=== PATIENT | male | born 1980 | race Caucasian/White ===

== ENCOUNTER → 2019-06-06 | Outpatient (CLI) | payer OTHER ==
--- NOTE | 2019-06-06 15:30 | RADIOLOGY REPORT (SQ) ---
EXAM DESCRIPTION: MRI LUMBAR SPINE WITHOUT COMPLETED DATE/TIME: 06/06/2019 2:46 pm REASON FOR STUDY: LOW BACK PAIN (M54.5) M54.5 LOW BACK PAIN COMPARISON: None. TECHNIQUE: Sagittal and Axial imaging includes T1, T2, STIR and gradient echo sequences. Coronal T2/ HASTE imaging. LIMITATIONS: None. FINDINGS: VISUALIZED UPPER ABDOMEN: Limited evaluation. No acute or suspicious findings suggested. SEGMENTATION: No transitional anatomy. The lowest well-developed disc space is labeled L5-S1. ALIGNMENT: Anatomic. VERTEBRAE: There are lesions in the vertebrae that are hyperintense on T2 and T1 suggestive of small hemangiomas. At L4 posterolaterally on the left there is a hyperintense T2 lesion that is isointense on T1. BONE MARROW: Reactive marrow changes is seen at L5-S1. DISC SIGNAL: Decreased T2 signal at L5-S1. Narrowing of the disc space. POSTERIOR ELEMENTS: Generally intact. No pars defect evident. HARDWARE: None in the spine. CORD AND CONUS: Normal in size and signal intensity. Conus at the L1-2 level. SOFT TISSUES: No aortic aneurysm seen. No bulky retroperitoneal adenopathy or mass. No paraspinal mas s or fluid. L1-L2: No significant spinal stenosis or exit foraminal stenosis. L2-L3: No significant spinal stenosis or exit foraminal stenosis. L3-L4: No significant spinal stenosis or exit foraminal stenosis. L4-L5: No significant spinal stenosis or exit foraminal stenosis. L5-S1: Shallow broad-based disc/osteophyte complex narrows the left neural foramen. LOWER THORACIC: Incompletely imaged. No stenosis seen. SACRUM: Visualized upper sacrum intact. OTHER: No other significant findings. IMPRESSION: 1. There appear to be hemangiomas at several vertebral levels. 2. There is a lesion at L4 as described that likewise may represent a hemangioma, but is isointense on T1. Cannot entirely exclude a metastatic lesion. 3. There is a shallow broad-based disc/ osteophyte complex at L5-S1 that results in mild left forami nal stenosis. TECHNICAL DOCUMENTATION: JOB ID: [id number] [email or web address]- All Rights Reserved Reading location - IP/workstation name: [email or web address]
== END ==
LOC: RAD 13:58
PROVIDERS: ATTEND Physician Assistant Medical
DX: M54.5 Low back pain (principal)
CPT/HCPCS: 72148

== ENCOUNTER 2019-12-06 16:22 | Emergency (ER) | payer OTHER ==
--- NOTE | 2019-12-06 16:36 | ER Document Report ---
ED Medical Screen (RME) - General Chief Complaint: Urinary Problem Stated Complaint: BLOOD IN URINE Time Seen by Provider: 12/06/19 16:33 Primary Care Provider: HOLLY SUTTON PA [Primary Care Provider] - Follow up as needed Mode of Arrival: Ambulatory Information source: Patient Notes: 39-year-old male with recent history of thrombocytosis and DVT in his left arm. Recently discharged from [facility] on December 01. Patient is taking Eliquis. The [facility] contacted patient today and patient noted blood in his urine. [facility] instructed patient to come to the ED. patient reports he noticed dark urine this morning. Noted some hematuria this afternoon. He denies fever vomiting diarrhea. He denies pain at all. I have greeted and performed a rapid initial assessment of this patient. A comprehensive ED assessment and evaluation of the patient, analysis of test results and completion of the medical decision making process will be conducted by additional ED providers. TRAVEL OUTSIDE OF THE [place] IN LAST 30 DAYS: No - Related Data Allergies/Adverse Reactions: No Known Allergies Allergy (Verified 12/06/19 16:43) Physical Exam - Vital signs Vitals: Temp Pulse Resp BP Pulse Ox 98.4 F 87 18 172/96 H 95 12/06/19 16:26 12/06/19 16:26 12/06/19 16:26 12/06/19 16:26 12/06/19 16:26 Course - Vital Signs Vital signs: Temp Pulse Resp BP Pulse Ox 98.4 F 87 18 172/96 H 95 12/06/19 16:26 12/06/19 16:26 12/06/19 16:26 12/06/19 16:26 12/06/19 16:26 Doctor's Discharge - Discharge Referrals: HOLLY SUTTON PA [Primary Care Provider] - Follow up as needed
[2019-12-06 17:34] LABS: ABSOLUTE EOSINOPHILS # (AUTO) 0.1 10^3/uL (0.0-0.6); ABSOLUTE LYMPHOCYTES (AUTO) 1.1 10^3/uL (0.5-4.7); ABSOLUTE MONOCYTES (AUTO) 0.4 10^3/uL (0.1-1.4); ABSOLUTE NEUT (AUTO) 4.2 10^3/uL (1.7-8.2); APPEARANCE,URINE CLOUDY; BASOPHILS % (AUTO) 0.3 % (0-2); BILIRUBIN,URINE NEGATIVE (NEGATIVE); COLOR,URINE YELLOW; EOSINOPHILS % (AUTO) 1.4 % (0-6); GLUCOSE, URINE NEGATIVE (NEGATIVE); HEMATOCRIT 40.3 % (37.9-51.0); HEMOGLOBIN 13.8 g/dL (13.5-17.0); KETONES,URINE NEGATIVE (NEGATIVE); LEUKOCYTE ESTERASE,URINE NEGATIVE (NEGATIVE); LYMPHOCYTES % (AUTO) 19.4 % (13-45); MEAN CORPUSCULAR HEMOGLOBIN 26.8 pg (27.0-33.4); MEAN CORPUSCULAR HGB CONC 34.2 g/dL (32.0-36.0); MEAN CORPUSCULAR VOLUME 78 fl (80-97); MONOCYTES % (AUTO) 6.6 % (3-13); NITRITE,URINE NEGATIVE (NEGATIVE); PROTEIN,URINE 30 mg/dL (NEGATIVE); RED BLOOD COUNT 5.15 10^6/uL (4.35-5.55); SEGMENTED NEUTROPHILS % (AUTO) 72.3 % (42-78); TOTAL CELLS COUNTED % (AUTO) 100 %; URINE SPECIFIC GRAVITY 1.013; UROBILINOGEN,URINE NEGATIVE mg/dL (<2.0); WHITE BLOOD COUNT 5.9 10^3/uL (4.0-10.5)
[2019-12-06 17:38] LABS: INTERNATIONAL RATION (INR) 1.19; PROTHROMBIN TIME 15.2 SEC (11.4-15.4)
[2019-12-06 17:39] LABS: PARTIAL THROMBOPLASTIN TIME 32.8 SEC (23.5-35.8)
[2019-12-06 17:47] LABS: ALBUMIN 4.3 g/dL (3.5-5.0); ALKALINE PHOSPHATASE 76 U/L (38-126); ANION GAP 7 (5-19); ASPARTATE AMINO TRANSFERASE 38 U/L (17-59); BILIRUBIN,TOTAL 0.7 mg/dL (0.2-1.3); BLOOD UREA NITROGEN 15 mg/dL (7-20); CALCIUM 9.6 mg/dL (8.4-10.2); CARBON DIOXIDE 30 mmol/L (22-30); CHLORIDE 99 mmol/L (98-107); GLUCOSE 103 mg/dL (75-110); TOTAL PROTEIN 7.5 g/dL (6.3-8.2)
[2019-12-06 18:23] LABS: PLATELET COUNT 54 10^3/uL (150-450)
--- NOTE | 2019-12-06 20:57 | ER Document Report ---
Entered by TAMMI STEPHENS SCRIBE 12/06/192037 Acting as scribe for:REFUGIO BRIGGS IV, MD ED GI/ - General Chief Complaint: Urinary Problem Stated Complaint: BLOOD IN URINE Time Seen by Provider: 12/06/19 16:33 Primary Care Provider: HOLLY SUTTON PA [NO LOCAL MD] - Follow up as needed Mode of Arrival: Ambulatory Information source: Patient Notes: This 39 year old male patient presents to the ED today with complaints of hematuria that occurred this afternoon. Patient states that he noticed dark colored urine this morning and that later in the afternoon, there was a "pink hue." He reports that he was recently diagnosed with thrombocytopenia and a DVT in his LUE and was discharged with a prescription for Eliquis and instructions to follow up with hematology at [facility] x4 days ago. He notes that he had a heparin drip and platelet transfusion during his admission. Denies back pain other than his chronic back pain or bloody stools. TRAVEL OUTSIDE OF THE [place] IN LAST 30 DAYS: No - Related Data Allergies/Adverse Reactions: No Known Allergies Allergy (Verified 12/06/19 16:43) Home Medications: Eliquis. 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 denies: Blood streaked bowels Genitourinary: See HPI, Hematuria Male Genitourinary: No symptoms reported Musculoskeletal: See HPI. denies: Back pain Skin: No symptoms reported Hematologic/Lymphatic: No symptoms reported Neurological/Psychological: No symptoms reported -: Yes All other systems reviewed and negative Physical Exam - Vital signs Vitals: Temp Pulse Resp BP Pulse Ox 98.4 F 87 18 172/96 H 95 12/06/19 16:26 12/06/19 16:26 12/06/19 16:26 12/06/19 16:26 12/06/19 16:26 Interpretation: Hypertensive - General General appearance: Alert In distress: None - HEENT Head: Normocephalic, Atraumatic Eyes: Normal Pupils: PERRL - Respiratory Respiratory status: No respiratory distress Chest status: Nontender Breath sounds: Normal Chest palpation: Normal - Cardiovascular Rhythm: Regular Heart sounds: Normal auscultation Murmur: No Friction rub: No Gallop: None auscultated - Abdominal Inspection: Normal Distension: No distension Bowel sounds: Normal Tenderness: Nontender - Abdomen soft Organomegaly: No organomegaly - Back Back: Normal, Nontender - Extremities General upper extremity: Normal inspection General lower extremity: Normal inspection - Neurological Neuro grossly intact: Yes Orientation: AAOx4 - Psychological Associated symptoms: Normal affect, Normal mood - Skin Skin Temperature: Warm Skin Moisture: Dry Skin Color: Normal Course - Re-evaluation Re-evalutation: 12/06/19 20:53 Patient was informed of discussion with Dr. Prajapati. Plan to check LDH and decide on disposition depending on LDH level explained to patient. Patient expresses understanding of plan to this point. 12/06/19 21:49 Results of LDH, other results of ED MSE discussed with patient. All questions were answered prior to discharge. Emergency signs and symptoms, reasons to return to the emergency department discussed with patient. - Vital Signs Vital signs: Temp Pulse Resp BP Pulse Ox 98.4 F 87 18 172/96 H 95 12/06/19 16:44 12/06/19 16:26 12/06/19 16:26 12/06/19 16:26 12/06/19 16:26 - Laboratory Result Diagrams: 12/06/19 17:18 12/06/19 17:18 Laboratory results interpreted by me: 12/06/19 12/06/19 12/06/19 17:18 17:18 17:18 MCV 78 L MCH 26.8 L Plt Count 54 L Sodium 136.4 L ALT 54 H Lactate Dehydrogenase Urine Protein 30 H Urine Blood LARGE H 12/06/19 17:18 MCV MCH Plt Count Sodium ALT Lactate Dehydrogenase 298 H Urine Protein Urine Blood - Consults dr. prajapati, [facility] Time consulted: 20:43 - dr. prajapati recommended that a LDH level be checked for significant hemolysis. If the LDH level is not greatly elevated she agrees that the patient can continue on Eliquis with precautions. She also stated that this MD could contact her if the LDH level was elevated. Reason for consultation: 12/06/19 20:52 hematuria, on eliquis, thrombocytopenia dr. prajapati Time consulted: 21:48 - This MD informed Dr. Prajapati that the LDH level is 298. She does not feel that this level is significantly elevated to justify taking the patient off of his Eliquis. She recommended he continue his Eliquis and follow-up with his regular doctor as scheduled. Reason for consultation: 12/06/19 21:48 Discuss LDH level Discharge - Discharge Clinical Impression: H/O deep venous thrombosis, Current use of anticoagulant therapy Hematuria Qualifiers: Hematuria type: unspecified type Qualified Code(s): R31.9 - Hematuria, unspecified Condition: Good Disposition: HOME, SELF-CARE Additional Instructions: Return to the Emergency Department without delay if any worse. It was determined the blood in your urine is due to being on Eliquis. Given that you have a significant blood clot in your arm and that your red blood cell levels appear to be okay, it is currently recommended that you continue taking the Eliquis. Seek immediate medical care if you have worsening of bleeding, blood in your stool, any other spontaneous bleeding. Avoid activities that have the potential to cause trauma and resultant bleeding. Be certain to follow-up with your regular provider on 12/10/2019. HOME CARE INSTRUCTIONS & INFORMATION: Thank you for choosing us for your medical needs. We hope you're satisfied with the care you received. After you leave, you must properly care for your problem and, at the same time, observe its progress. Any condition can change. Some illnesses can change rapidly over hours or days. If your condition worsens, return to the Emergency Department or see your physician promptly. ABOUT YOUR X-RAYS AND EKG'S: If you had an EKG or X-rays taken, they have been read by the Emergency Physician. The X-rays and EKG's will also be read by a Radiologist or Soil Science Technical Officer within 24 hours. If discrepancies are noted, you wi ll be notified by telephone. Please be certain the ED has a correct telephone number & address where you can be reached. Also, realize that some fractures or abnormalities do not show up on initial X-rays. If your symptoms continue, see your physician. ABOUT YOUR LABORATORY TEST: If you had laboratory tests, the results have been reviewed by the Emergency Physician. Some test results (for example cultures) may not be available for several days. You will be contacted if any test result shows you need additional treatment. Please be certain the ED has a correct telephone number and address where you can be reached. ABOUT YOUR MEDICATIONS: You will receive instructions on how to take your medicine on the prescription label you receive. Additional information may be provided by the Pharmacy. If you have questions afterwards, call the ED for clarification or further instructions. Some prescribed medications may cause drowsiness. Do not perform tasks such as driving a car or operating machinery without consulting your Pharmacist. If you feel you need a refill of pain medication, your condition will need re-evaluation. Please do not call for a refill of any medication. ABOUT YOUR SIGNATURE: Signature of this document acknowledges to followin. Understanding that you received emergency treatment and that you may be released before al medical problems are known or treated. Please be certain the ED has a correct phone number & address where you can be reached. 2. Acknowledgement that you will arrange for follow-up care as recommended. 3. Authorization for the Emergency Physician to provide information to your follow-up Physician in order to maximize your care. AT ANY TIME, IF YOUR SYMPTOMS CHANGE SIGNIFICANTLY OR WORSEN OR YOU DEVELOP NEW SYMPTOMS, RETURN TO THE EMERGENCY DEPARTMENT IMMEDIATELY FOR RE-EVALUATION. OUR GOAL IS TO PROVIDE EXCELLENT MEDICAL CARE! WE HOPE THAT WE HAVE MET YOUR EXPECTATIONS DURING YOUR EMERGENCY DEPARTMENT VISIT AND THAT YOU FEEL YOU HAVE RECEIVED EXCELLENT CARE! Referrals: HOLLY SUTTON PA [NO LOCAL MD] - Follow up as needed I personally performed the services described in the documentation, reviewed and edited the documentation which was dictated to the scribe in my presence, and it accurately records my words and actions.
[2019-12-06 22:16] VITALS: BP 140/88
== END 2019-12-06 22:15 | disposition home or self-care (01) ==
LOC: ER 16:22
DX: R31.9 Hematuria, unspecified (principal); Z79.02 Long term (current) use of antithrombotics/antiplatelets; Z86.718 Personal history of other venous thrombosis and embolism
CPT/HCPCS: 36415; 80053; 81001; 83615; 85025; 85610; 85730; 99283

== ENCOUNTER 2020-05-13 14:42 | Emergency (ER) | payer OTHER ==
[2020-05-13] MEDS ORDERED: NORMAL SALINE 1000 ML 1,000 ML IV ONE (15:06)
[2020-05-13] MEDS ORDERED: TAMSULOSIN HCL 0.4 MG CAP.SR.24H PO ONE (15:07)
--- NOTE | 2020-05-13 15:09 | ER Document Report ---
ED Medical Screen (RME) - General Chief Complaint: Abdominal Pain Stated Complaint: ABDOMINAL/FLANK PAIN Time Seen by Provider: 05/13/20 15:01 Primary Care Provider: REID ZIMMERMAN [Primary Care Provider] - Follow up as needed Mode of Arrival: Ambulatory Information source: Patient Notes: 39-year-old male presented to ED for complaint of left flank pain for about 1 to 2 weeks. He states he has been much worse today. [facility]. He states he did have 2 ibuprofen 800 she took the last one at 11 AM. He states he took Tylenol 500 mg just before coming to the emergency room. sates in November he had a CT for some other reason and they told him that he did have some stones in his kidneys. He thinks that he now has a stone that is passing. Patient is alert oriented respirations regular nonlabored speaking in full sentences. He does deny any hematuria at this time. I have greeted and performed a rapid initial assessment of this patient. A comprehensive ED assessment and evaluation of the patient, analysis of test results and completion of medical decision making process will be conducted by an additional ED providers. TRAVEL OUTSIDE OF THE [place] IN LAST 30 DAYS: No - Related Data Allergies/Adverse Reactions: No Known Allergies Allergy (Verified 12/06/19 16:43) Past Medical History - General Information source: Patient - Social History Cigarette use (# per day): No Frequency of alcohol use: None Drug Abuse: None Lives with: Family Family history: Reviewed & Not Pertinent - Past Medical History Cardiac Medical History: Reports: Hx DVT Pulmonary Medical History: Reports: None EENT Medical History: Reports: None Neurological Medical History: Reports: None Endocrine Medical History: Reports: None Renal/ Medical History: Reports: Hx Kidney Stones Malignancy Medical History: Reports None GI Medical History: Reports: None Musculoskeltal Medical History: Reports Hx Musculoskeletal Deformity, Reports Hx Musculoskeletal Trauma Skin Medical History: Reports None Psychiatric Medical History: Reports: None Traumatic Medical History: Reports: None Infectious Medical History: Reports: None Surgical Hx: Negative Past Surgical History: Reports: None - Immunizations Immunizations up to date: No Hx Diphtheria, Pertussis, Tetanus Vaccination: No Physical Exam - Vital signs Vitals: Temp Pulse Resp BP Pulse Ox 97.7 F 74 16 187/91 H 99 05/13/20 14:47 05/13/20 14:47 05/13/20 14:47 05/13/20 14:47 05/13/20 14:47 Course - Vital Signs Vital signs: Temp Pulse Resp BP Pulse Ox 97.7 F 74 16 187/91 H 99 05/13/20 14:47 05/13/20 14:47 05/13/20 14:47 05/13/20 14:47 05/13/20 14:47 Doctor's Discharge - Discharge [facility] [[facility]] - Follow up as needed
--- NOTE | 2020-05-13 15:37 | RADIOLOGY REPORT (SQ) ---
EXAM DESCRIPTION: CT ABD/PELVIS NO ORAL OR IV IMAGES COMPLETED DATE/TIME: 05/13/2020 3:23 pm REASON FOR STUDY: Left flank pain COMPARISON: None. TECHNIQUE: CT scan of the abdomen and pelvis performed without intravenous or oral contrast. Images reviewed with lung, soft tissue, and bone windows. Reconstructed coronal and sagittal MPR images revi ewed. All images stored on PACS. All CT scanners at this facility use dose modulation, iterative reconstruction, and/or weight based d osing when appropriate to reduce radiation dose to as low as reasonably achievable (ALARA). [facility]: Dose Right [facility]: CareDose [facility]: Dose Right [facility]: Teradose 4D [facility]: Smart Gust RADIATION DOSE: CT Rad equipment meets quality standard of care and radiation dose reduction techniq ues were employed. CTDIvol: 19.1 mGy. DLP: 1088 mGy-cm.mGy. LIMITATIONS: None. FINDINGS: LOWER CHEST: No significant findings. No nodules or infiltrates. NON-CONTRASTED LIVER, SPLEEN, ADRENALS: Evaluation limited by lack of IV contrast. No identified sign ificant masses. PANCREAS: No masses. No peripancreatic inflammatory changes. GALLBLADDER: No identified stones by CT criteria. No inflammatory changes to suggest cholecystitis. RIGHT KIDNEY AND URETER: No suspicious masses. Assessment limited by lack of IV contrast. Nonobstru cting 4 mm stone in the inferior pole the right kidney. No hydronephrosis or hydroureter. LEFT KIDNEY AND URETER: No suspicious masses. Assessment limited by lack of IV contrast. 8.7 mm pro ximal left ureteral stone. Hounsfield units measure just over 1,200. Left-sided hydronephrosis. AORTA AND RETROPERITONEUM: No aneurysm. No retroperitoneal masses or adenopathy. BOWEL AND PERITONEAL CAVITY: No obvious masses or inflammatory changes. No free fluid. APPENDIX: Normal. PELVIS, BLADDER, AND ABDOMINAL WALL:No abnormal masses. No free fluid. Bladder normal. BONES: No significant findings. OTHER: No other significant finding. IMPRESSION: 8.7 mm obstructing proximal left ureteral stone. Mild left-sided hydronephrosis and per inephric stranding. Nonobstructing 4.9 mm stone in the inferior pole the right kidney. COMMENT: Quality ID # [id number]: Final reports with documentation of one or more dose reduction techniques (e.g., Automated exposure control, adjustment of the mA and/or kV according to patient size, use of iterative reconstruction technique) TECHNICAL DOCUMENTATION: JOB ID: [id number] 2010 [employer]- All Rights Reserved Reading location - IP/workstation name: [email or web address]
[2020-05-13 16:09] LABS: APPEARANCE,URINE CLEAR; BILIRUBIN,URINE NEGATIVE (NEGATIVE); COLOR,URINE STRAW; GLUCOSE, URINE NEGATIVE (NEGATIVE); KETONES,URINE NEGATIVE (NEGATIVE); LEUKOCYTE ESTERASE,URINE NEGATIVE (NEGATIVE); NITRITE,URINE NEGATIVE (NEGATIVE); PROTEIN,URINE NEGATIVE (NEGATIVE); URINE SPECIFIC GRAVITY 1.008; UROBILINOGEN,URINE NEGATIVE mg/dL (<2.0)
[2020-05-13 16:22] LABS: ALBUMIN 4.3 g/dL (3.5-5.0); ALKALINE PHOSPHATASE 85 U/L (38-126); ANION GAP 9 (5-19); ASPARTATE AMINO TRANSFERASE 28 U/L (17-59); BILIRUBIN,DIRECT 0.3 mg/dL (0.0-0.4); BILIRUBIN,TOTAL 0.8 mg/dL (0.2-1.3); BLOOD UREA NITROGEN 19 mg/dL (7-20); CALCIUM 9.4 mg/dL (8.4-10.2); CARBON DIOXIDE 26 mmol/L (22-30); CHLORIDE 102 mmol/L (98-107); GLUCOSE 106 mg/dL (75-110); POTASSIUM 4.3 mmol/L (3.6-5.0); TOTAL PROTEIN 7.1 g/dL (6.3-8.2)
[2020-05-13] MEDS ORDERED: HYDROMORPHONE HCL INJ/PF 2 MG/ML AMPULE IV ONE (17:23)
[2020-05-13] MEDS ORDERED: ONDANSETRON HCL INJ/PF 4 MG/2 ML SDV IV ONE (17:24)
--- NOTE | 2020-05-13 17:57 | ER Document Report ---
ED General - General Chief Complaint: Lower Abdominal Pain Stated Complaint: ABDOMINAL/FLANK PAIN Time Seen by Provider: 05/13/20 15:01 Primary Care Provider: ELSIE,REID [Primary Care Provider] - Follow up as needed Mode of Arrival: Ambulatory Notes: Patient is a 39-year-old white male with a history of DVT who presents the emergency department the chief complaint of left flank pain for the past 2 weeks. He states over the past couple weeks has been very mild in nature and intermittent. He states today he suddenly had a worsening of the pain of the left flank. States been associated with some mild nausea. Denies any difficulty urinating or vomiting. No diarrhea. Denies any fevers. No chest pain or shortness of breath. He adds that when he was hospitalized for the DVT during CT they incidentally saw some stones in his kidneys. TRAVEL OUTSIDE OF THE [place] IN LAST 30 DAYS: No - Related Data Allergies/Adverse Reactions: No Known Allergies Allergy (Verified 05/13/20 17:15) Home Medications: cholesterol Past Medical History - General Information source: Patient - Social History Smoking Status: Never Smoker Cigarette use (# per day): No Chew tobacco use (# tins/day): No Frequency of alcohol use: None Drug Abuse: None Lives with: Family Family History: Reviewed & Not Pertinent Patient has homicidal ideation: No - Past Medical History Cardiac Medical History: Reports: Hx DVT, Hx Hypercholesterolemia Pulmonary Medical History: Reports: None EENT Medical History: Reports: None Neurological Medical History: Reports: None Endocrine Medical History: Reports: None Renal/ Medical History: Reports: Hx Kidney Stones Malignancy Medical History: Reports None GI Medical History: Reports: None Musculoskeletal Medical History: Reports Hx Musculoskeletal Deformity, Reports Hx Musculoskeletal Trauma Skin Medical History: Reports None Psychiatric Medical History: Reports: None Traumatic Medical History: Reports: None Infectious Medical History: Reports: None Surgical Hx: Negative Past Surgical History: Reports: None - Immunizations Immunizations up to date: No Hx Diphtheria, Pertussis, Tetanus Vaccination: No Review of Systems - Review of Systems Constitutional: denies: Fever EENT: denies: Nose discharge Cardiovascular: denies: Dyspnea Respiratory: denies: Sputum Gastrointestinal: denies: Constipation, Poor fluid intake Genitourinary: Flank pain Male Genitourinary: denies: Testicular pain Musculoskeletal: denies: Muscle pain Skin: denies: Lesions Hematologic/Lymphatic: denies: Easy bleeding Neurological/Psychological: denies: Paralysis Physical Exam - Vital signs Vitals: Temp Pulse Resp BP Pulse Ox 97.7 F 74 16 187/91 H 99 05/13/20 14:47 05/13/20 14:47 05/13/20 14:47 05/13/20 14:47 05/13/20 14:47 - General General appearance: Appears well, Alert In distress: None - Respiratory Respiratory status: No respiratory distress Chest status: Nontender Breath sounds: Normal Chest palpation: Normal - Cardiovascular Rhythm: Regular Heart sounds: Normal auscultation - Abdominal Inspection: Obese Distension: No distension Bowel sounds: Normal Tenderness: Tender - Left lower abdomen/left flank - Back Back: CVA tenderness - Left-sided - Neurological Neuro grossly intact: Yes Cognition: Normal Orientation: AAOx4 - Psychological Associated symptoms: Normal affect, Normal mood - Skin Skin Temperature: Warm Skin Moisture: Dry Skin Color: Normal Course - Re-evaluation Re-evalutation: 05/13/20 17:54 I attempted to call the patient's urologist, he is not sure of the doctor's name but gave me his phone number, . I called this and the extension 2014 to the urology wig sales consultant he was speaking with through messaging services. I could not get a hold of anyone to discuss the patient's case. At this point the right side is nonobstructed. The patient is still making urine, has urinated here during his stay without difficulty. There is no gross blood in the urine. He is not nauseous or vomiting. No fevers. No swelling of the abdomen. No testicular pain or swelling. I did discuss with him the risks of the right kidney stone descending into the right ureter and causing a bilateral obstruction and bilateral hydronephrosis and the emergent implications of this. He verbalized that he understood and agreed to return here or his nearest ER immediately with any decreased urinary output, trouble urinating, lack of urination, abdominal swelling, testicular pain or swelling, worsening pain, fever, nausea, vomiting or any new, persistent or worsening symptoms. He will call his urologist first thing tomorrow morning when they open and discussed the findings on CT. I gave him a copy of the report so that he could read verbatim the impression of the bilateral findings. 05/13/20 20:19 Reevaluation at this time patient looks and feels better. He stable and appropriate for discharge and outpatient follow-up. Is discussed above he will call his urologist first thing in the morning. Return here or any ER immediately with any new, persistent or worsening symptoms. He again verbalized understood and agreed. - Vital Signs Vital signs: Temp Pulse Resp BP Pulse Ox 98.1 F 72 16 112/55 L 97 05/13/20 18:36 05/13/20 18:36 05/13/20 18:36 05/13/20 18:36 05/13/20 18:36 - Laboratory Result Diagrams: 05/13/20 18:52 05/13/20 15:33 Laboratory results interpreted by me: 05/13/20 05/13/20 15:33 18:52 Hgb 13.0 L Hct 37.7 L MCV 78 L MCH 26.8 L RDW 15.2 H Plt Count 81 L Creatinine 1.88 H Est GFR ( Amer) 48 L Est GFR (MDRD) Non-Af 40 L Discharge - Discharge Clinical Impression: Ureteral stone with hydronephrosis, Renal colic, Nephrolithiasis Condition: Stable Disposition: HOME, SELF-CARE Instructions: Kidney Stone (OM) Additional Instructions: Please call your urologist first thing in the morning when they open. Please return here or any ER immediately with any new, persistent or worsening symptoms. Prescriptions: Tamsulosin HCl [Flomax 0.4 mg Cap.sr] 0.4 mg PO DAILY #7 cap.sr.24h Hydrocodone/Acetaminophen [[place] 10-325 mg Tablet] 1 tab PO Q6 PRN #12 tablet PRN Reason: Referrals: [facility] [Primary [facility]] - Follow up as needed
[2020-05-13 19:03] LABS: ABSOLUTE LYMPHOCYTES (AUTO) 1.1 10^3/uL (0.5-4.7); ABSOLUTE MONOCYTES (AUTO) 0.6 10^3/uL (0.1-1.4); ABSOLUTE NEUT (AUTO) 5.1 10^3/uL (1.7-8.2); BASOPHILS % (AUTO) 0.2 % (0-2); EOSINOPHILS % (AUTO) 0.4 % (0-6); HEMATOCRIT 37.7 % (37.9-51.0); LYMPHOCYTES % (AUTO) 15.9 % (13-45); MEAN CORPUSCULAR HEMOGLOBIN 26.8 pg (27.0-33.4); MEAN CORPUSCULAR HGB CONC 34.4 g/dL (32.0-36.0); MEAN CORPUSCULAR VOLUME 78 fl (80-97); MONOCYTES % (AUTO) 9.2 % (3-13); RED BLOOD COUNT 4.85 10^6/uL (4.35-5.55); RED CELL DISTRIBUTION WIDTH 15.2 % (11.5-14.0); SEGMENTED NEUTROPHILS % (AUTO) 74.3 % (42-78); TOTAL CELLS COUNTED % (AUTO) 100 %; WHITE BLOOD COUNT 6.9 10^3/uL (4.0-10.5)
[2020-05-13 19:27] LABS: PLATELET COUNT 81 10^3/uL (150-450)
[2020-05-13] MEDS ORDERED: KETOROLAC TROMETHAMINE INJ/PF 30 MG/1 ML SDV IV ONE (19:31)
[2020-05-13] MEDS ORDERED: HYDROCODONE/ACETAMINOPHEN 5-325 MG (6 TAB/ER DISP) PO PRN (20:22)
[2020-05-13 20:38] VITALS: BP 149/95
== END 2020-05-13 20:46 | disposition home or self-care (01) ==
LOC: ER 14:42
DX: N13.2 Hydronephrosis with renal and ureteral calculous obstruction (principal); R10.30 Lower abdominal pain, unspecified; R10.9 Unspecified abdominal pain; R11.0 Nausea; Z86.718 Personal history of other venous thrombosis and embolism
CPT/HCPCS: 99285; 96361; 96374; 96375; 36415; 87086; 85025; 80053; 81001; 74176; J1885; J1170; J2405; J7030